=== PATIENT | female | born 1965 | race Caucasian/White ===

== ENCOUNTER → 2017-01-31 | Outpatient (CLI) | payer MEDICARE, MEDICAID ==
[~2017-01-31] MED LIST: ADVA500A INH; ADVAI250I PO; ALBU0.086 INH; ARIP1TAB5 PO; BUPR300T PO; CIPR500T2 PO; COMMODE; CPM; CPMMACHINE; CYAN1000P IM; CYCL1TAB29 PO; DIOV160T3 PO; DOCU100C PO; HYDR-3583 PO; LAMO100T PO; LEVO.075 PO; LYRI200C PO; METHY10 PO; NEXI40CA PO; NEXI40GR PO; NORC10TA2 PO; OXYC-406 PO; OXYC10 PO; OXYC1CAP PO; OXYC30TA PO; SERT100 PO; TOPA100T11 PO; TOPA100T8 PO; VALS1TAB70 PO; VARE1 PO; VENTAER INH; WALKER WHEELS/F1 MIS; WARF-21 PO; WELLTAB39 PO; [UNRECOGNIZED DRUG - OTHER]
[2017-01-31 09:24] LABS: AUTOMATED NEUTROPHIL # 3.9 TH/MM3 (1.8-7.7); BASOPHIL % 0.4 % (0.0-2.0); EOSINOPHIL # 0.4 TH/MM3 (0-0.4); EOSINOPHIL % 6.2 % (0.0-4.0); HEMATOCRIT 39.1 % (35.0-46.0); HEMO FLAGS DIFF FINAL; LYMPHOCYTE # 1.6 TH/MM3 (1.0-4.8); MEAN CELL VOLUME 94.6 FL (80.0-100.0); MEAN CORPUSCULAR HEMOGLOBIN 31.5 PG (27.0-34.0); MEAN CORPUSCULAR HGB CONC 33.3 % (32.0-36.0); MONO % 6.5 % (0.0-8.0); NEUT % 60.9 % (16.0-70.0); PLATELET COUNT 212 TH/MM3 (150-450); RED BLOOD COUNT 4.14 MIL/MM3 (4.00-5.30); RED CELL DISTRIBUTION WIDTH 14.5 % (11.6-17.2); WHITE BLOOD COUNT 6.3 TH/MM3 (4.0-11.0)
[2017-01-31 09:54] LABS: BICARBONATE 28.4 MEQ/L (21.0-32.0); POTASSIUM 4.3 MEQ/L (3.5-5.1)
[2017-01-31 11:07] LABS: BACTERIA, URINE RARE /hpf; BLOOD, URINE NEG (NEG); COMMENT (UR) CULT NOT INDICATED; CULTURE IF INDICATED CULT NOT INDICATED; GLUCOSE,URINE NEG (NEG); KETONE, URINE NEG (NEG); NITRITE,URINE NEG (NEG); PH, URINE 6.5 (5.0-8.5); SQUAMOUS EPITHELIAL CELL URINE <1 /hpf (0-5); URINE COLOR LIGHT-YELLOW (YELLW/STRAW)
--- NOTE | 2017-01-31 13:21 | EKG ---
Date Performed: 01/31/2017 Time Performed: 09:17:04 PTAGE: 51 years EKG: Sinus rhythm NORMAL ECG PREVIOUS TRACING 01/15/16 Compared to prior tracing no significant change DOCTOR: Jeremy Schumacher Interpretating Date/Time 01/31/2017 13:21:11
== END ==
LOC: CPRE 08:10
PROVIDERS: ATTEND Orthopaedic Surgery Orthopaedic Surgery of the Spine
DX: Z01.812 Encounter for preprocedural laboratory examination (principal); Z01.810 Encounter for preprocedural cardiovascular examination; M17.11 Unilateral primary osteoarthritis, right knee
CPT/HCPCS: 36415; 80048; 81001; 85025; 93005

== ENCOUNTER 2017-02-06 08:23 | Inpatient (IN) | payer MEDICARE, MEDICAID ==
[~2017-02-06] VITALS: Ht 162.6 cm; Wt 108.1 kg
[~2017-02-06 08:23] MED LIST changes: -ADVAI250I PO; -ALBU0.086 INH; -CIPR500T2 PO; -COMMODE; -CPM; -CPMMACHINE; -CYAN1000P IM; -DIOV160T3 PO; -DOCU100C PO; -NEXI40CA PO; -NORC10TA2 PO; -OXYC10 PO; -OXYC1CAP PO; -OXYC30TA PO; -SERT100 PO; -TOPA100T8 PO; -WALKER WHEELS/F1 MIS; -WARF-21 PO; -WELLTAB39 PO; -[UNRECOGNIZED DRUG - OTHER]
[2017-02-06] MEDS ORDERED: VANCOMYCIN 1000 MG/NS 250 ML (for <70 kg) IV SCH ×2 (10:30)
[2017-02-06] MEDS ORDERED: CHLORHEXIDINE GLUCONATE 2 % 1 PACK (2 CLOTHS) TOPICAL PRN (10:30)
[2017-02-06] MEDS ORDERED: ceFAZolin 2 GM PREMIX 50 ML IV SCH (10:30)
[2017-02-06] MEDS ORDERED: METOPROLOL TARTRATE 25 MG TAB PO PRN (10:30)
[2017-02-06] MEDS ORDERED: INSULIN HUMAN REGULAR 1,000 UNITS/10 ML VIAL SQ PRN (10:30)
[2017-02-06] MEDS ORDERED: LACTATED RINGER'S 1000 ML IV PRN (10:30)
[2017-02-06] MEDS ORDERED: SODIUM CHLORID 0.9% 500 ML IV PRN (10:30)
[2017-02-06] MEDS ORDERED: CHLORHEXIDINE GLUCONATE 4% SOLN 120 ML BTL TOPICAL SCH (10:30)
[2017-02-06] MEDS ORDERED: POVIDONE IODINE 5% (ANTISEPSIS KIT) 4 APPLICATIONS EACH NARE PRN (10:30)
[2017-02-06] MEDS ORDERED: ONDANSETRON HCL 4 MG/2 ML VIAL IV PUSH ONE (12:00)
[2017-02-06] MEDS ORDERED: MIDAZOLAM HCL 2 MG/2 ML VIAL IV ONE (12:00)
[2017-02-06] MEDS ORDERED: PROPOFOL 200 MG/20 ML AMP IV ONE (12:00)
[2017-02-06] MEDS ORDERED: ROPIVACAINE PERI-ARTICULAR INJECTION. P-ARTICULR SCH ×5 (12:00)
[2017-02-06] MEDS ORDERED: PHENYLEPH/NS 1000 MCG/10 ML SYR IV ONE (12:00)
[2017-02-06] MEDS ORDERED: GENTAMICIN SULFATE 80 MG/2 ML VIAL ONE (12:26)
[2017-02-06] MEDS ORDERED: DEXAMETHASONE SOD PHOS PF 10 MG/ML VIAL ONE (12:27)
[2017-02-06] MEDS ORDERED: BUPIVACAINE HCL PF 0.25% 30 ML VIAL ONE (12:28)
[2017-02-06] MEDS ORDERED: FAMOTIDINE 20 MG/2 ML VIAL ONE (12:38)
[2017-02-06] MEDS ORDERED: ACETAMINOPHEN 1000 MG/100 ML 100 ML IV ONE (12:38)
--- NOTE | 2017-02-06 14:59 | HHI.FF ---
Face to Face Verification Diagnosis: (1) Osteoarthritis of right knee Physical Therapy Gait training, Transfer training, bed to chair Knee: Total knee, Protocol: Right, Full weight bearing Right LE Weight Bearing: WB as tolerated Left LE Weight Bearing: WB as tolerated Nursing RN: 3 days/week x 2 weeks Nursing: Dressing changes (clean incision with alcohol and apply dry sterile dressing ) Additional Instructions Pt/INR q Monday and , call/text results to Phoebe DING [phone] Goal INR 1.5-1.8 I have seen patient Fabiola Fajardo on 02/06/17. My clinical findings support the need for the requested home health care services because: Deconditioned w/ increased weakness I certify that my clinical findings support that this patient is homebound because: Post-op weakness Slade Wynn MD Feb 06, 2017 14:58
[2017-02-06] MEDS ORDERED: PROPOFOL 500 MG/50 ML INJ 50 ML ONE (15:01)
[2017-02-06] MEDS ORDERED: WALKER WHEELS/F1 MIS (15:04)
[2017-02-06] MEDS ORDERED: CPMMACHINE (15:04)
[2017-02-06] MEDS ORDERED: ACETAMINOPHEN/HYDROcodone 325 MG/10 MG TAB PO PRN ×3 (15:15→16:15)
[2017-02-06] MEDS ORDERED: ALUMINUM/MAGNESIUM/SIMETH 30 ML CUP PO PRN (15:15)
[2017-02-06] MEDS ORDERED: SODIUM CHLORIDE 0.9% FLUSH 5 ML FLUSH IVF PRN (15:15)
[2017-02-06] MEDS ORDERED: Post-op Orders (for Pharmacy) MISC XX ONE (15:15)
[2017-02-06] MEDS ORDERED: ONDANSETRON HCL 4 MG/2 ML VIAL IVP PRN (15:15)
--- NOTE | 2017-02-06 15:16 | HHI.PR ---
Immediate Post Op Note Procedure Date: Feb 06, 2017 Pre Op Diagnosis: R Knee OA Post Op Diagnosis: Same Surgeon: Slade Wynn MD Pigment Making Supervisor(s): Phoebe Lagunas PA-C Procedure: R TKR Complications: None Specimen(s) removed: None Estimated blood loss: 25cc Anesthesia: Regional Block, Spinal, Local Drains: Hemovac Tourniquet time (min at mmHg) 56 mins @ 275 mm Hg Patient to: PACU Patient Condition: Good Implant/Devices: SEE IMPLANT LOG (if applicable) Date/Time of Procedure: SEE SURGICAL CARE RECORD Slade Wynn MD Feb 06, 2017 15:16
[2017-02-06] MEDS: LACTATED RINGER'S 1000 ML INJ 1,000 ML IV SCH (15:45)
[2017-02-06] MEDS ORDERED: *morphine SULFATE 8 MG/ML PERIprocedure ONLY ONE (15:50)
[2017-02-06] MEDS ORDERED: *HYDROmorphone PF 1 MG VIAL PERIprocedural Use ONLY ONE (16:06)
--- NOTE | 2017-02-06 16:07 | PD.CONS ---
HPI Service [facility] Consult Requested By Primary Care Physician Darnell Erickson DO Diagnoses: History of Present Illness Mrs. Fajardo is a 51-year-old female. She is at the hospital because she's having a knee surgery on the right. Baseline medical conditions are COPD, hypertension, and hypothyroidism. She has a past history of left knee surgery with good success. She smokes at baseline 1-1.5 packs per day. When seen she is postop and recovering well. No other complaints. Review of Systems Constitutional: DENIES: Diaphoretic episodes, Fatigue, Fever, Chills, Dizziness Eyes: DENIES: Blurred vision, Diplopia, Eye pain Ears, nose, mouth, throat: DENIES: Tinnitus, Hearing loss, Nasal discharge Respiratory: DENIES: Apneas, Cough, Snoring Cardiovascular: DENIES: Chest pain, Palpitations, Syncope Gastrointestinal: DENIES: Abdominal pain, Black stools, Bloody stools Musculoskeletal: COMPLAINS OF: Joint pain, Stiffness, Joint Swelling Integumentary: DENIES: Abnormal pigmentation, Pruritus, Rash, Nail changes Hematologic/lymphatic: DENIES: Bruising, Lymphadenopathy Immunologic/allergic: DENIES: Eczema, Urticaria Neurologic: DENIES: Abnormal gait, Headache, Paresthesias Psychiatric: DENIES: Anxiety, Confusion, Depression Past Family Social History Allergies: Coded Allergies: Sulfa (Sulfonamide Antibiotics) (Unverified Allergy, Severe, TONGUE SWELLING, 02/06/17) doxycycline (Unverified Allergy, Severe, TONGUE SWELLING, 02/06/17) sulfamethoxazole (Unverified Allergy, Severe, TONGUE SWELLING, 02/06/17) trimethoprim (Unverified Allergy, Severe, TONGUE SWELLING, 02/06/17) Past Medical History COPD HTN Hypothyroidism Osteoarthritis ADHD Depression Hx Past Surgical History Left Knee replacement surgery Reported Medications Reported Meds & Active Scripts Active Reported Synthroid (Levothyroxine Sodium) 75 Mcg Tab 75 Mcg PO DAILY Oxycodone ER (Oxycodone HCl) 40 Mg Tab 40 Mg PO Q12HR Hydrocodone-Acetaminophen 10-325 mg Tab 1 Tab PO QID PRN Ventolin Hfa 18 GM Inh (Albuterol Sulfate) 90 Mcg/Act Aer 2 Puff INH Q4-6H PRN Abilify (Aripiprazole) 10 Mg Tab 10 Mg PO DAILY Chantix (Varenicline) 1 Mg Tab 1 Mg PO DIRECTED Lamotrigine 100 Mg Tab 100 Mg PO HS Advair Diskus Inh (Fluticasone-Salmeterol Inh) 500-50 Mcg/Blist Aer 1 Puff INH BID Rinse mouth after use. Valsartan 320 Mg Tab 320 Mg PO DAILY Nexium (Esomeprazole) 40 Mg Pkt 40 Mg PO DAILY Flexeril (Cyclobenzaprine HCl) 10 Mg Tab 10 Mg PO HS Bupropion HCl ER 24 HR (Bupropion HCl) 300 Mg Tab 300 Mg PO DAILY Topamax (Topiramate) 100 Mg Tab 100 Mg PO DAILY Lyrica (Pregabalin) 200 Mg Cap 200 Mg PO BID Ritalin IR (Methylphenidate HCl) 10 Mg Tab 10 Mg PO BIDAC Active Ordered Medications Administered Medications Medications (Trade) Dose Ordered Sig/Jg Route PRN Reason Start Time Stop Time Status Last Admin Dose Admin Lactated Ringer's 1,000 ml @ 30 mls/hr Q24H PRN IV SEE LABEL COMMENTS 02/06/17 10:30 02/09/17 10:29 02/06/17 10:30 Chlorhexidine Gluconate (Chlorhexidine 2% Cloth) 3 pack STONE SANDBLASTER PRN TOPICAL SEE LABEL COMMENTS 02/06/17 10:30 02/09/17 10:29 02/06/17 10:30 Cefazolin Sodium/ Dextrose 50 ml @ 100 mls/hr STONE SANDBLASTER IV 02/06/17 10:30 02/09/17 10:29 02/06/17 13:14 Vancomycin HCl 1000 mg/Sodium Chloride 250 ml @ 250 mls/hr STONE SANDBLASTER IV 02/06/17 10:30 02/09/17 10:29 02/06/17 12:38 Ropivacaine 24.63 ml/Ketorolac Tromethamine 30 mg/Epinephrine HCl 0.5 mg/ Clonidine 80 mcg/ Sodium Chloride 100 ml @ 200 mls/hr ONCE P-ARTICULR 02/06/17 12:00 02/06/17 18:00 02/06/17 14:00 Family History None that the patient can recall Social History Smokes 1 to 1.5 PPD No alcohol abuse reported No illicit drug abuse reported Physical Exam Vital Signs Vital Signs Date Time Temp Pulse Resp B/P (MAP) Pulse Ox O2 Delivery O2 Flow Rate FiO2 02/06/17 14:52 97.5 75 17 126/73 (90) 98 Nasal Cannula 4 02/06/17 10:35 97.7 92 20 106/67 (80) 95 Physical Exam GENERAL: NAD, A&Ox3 HEAD: Normocephalic. NECK: Supple, trachea midline. No lymphadenopathy. EYES: No scleral icterus. No injection or drainage. CARDIOVASCULAR: Regular rate and rhythm without murmurs, gallops, or rubs. RESPIRATORY: Breath sounds equal bilaterally. No accessory muscle use. GASTROINTESTINAL: Abdomen soft, non-tender, nondistended. MUSCULOSKELETAL: No cyanosis, or edema. SKIN: Warm and dry. NEURO: No focal neurological deficitis. Assessment and Plan Problem List: (1) Major depression ICD Code: F32.2 - Major depression Status: Acute (2) COPD (chronic obstructive pulmonary disease) ICD Code: J44.9 - COPD (chronic obstructive pulmonary disease) Status: Chronic (3) Hypothyroidism ICD Code: E03.9 - Hypothyroidism Status: Acute (4) Hypertension, benign ICD Code: I10 - Hypertension, benign Status: Chronic (5) Osteoarthritis of right knee ICD Code: M17.11 - Unilateral primary osteoarthritis, right knee Assessment and Plan Assessment and Plan 51 year old female, status post right knee joint arthroplasty Osteoarthritis S/P Right Total Knee PRN pain treatments Follow CBC COPD Follow clinically PRN albuterol nebulized treatments HTN Follow BP Resume baseline treatments Hypothyroidism Continue baseline treatments Monitor as an outpatient ADHD Depression Hx No change to baseline treatments Nicotine Dependence NicoDerm DVT Prophylaxis Selection deferred to surgeon Problem Qualifiers (1) Osteoarthritis of right knee: Qualified Codes: M17.11 - Unilateral primary osteoarthritis, right knee Robbin Hernandez MD Feb 06, 2017 16:07
--- NOTE | 2017-02-06 16:12 | RADRPT ---
EXAM DATE/TIME: 02/06/2017 15:17 [place] COMPARISON: No previous studies available for comparison. INDICATIONS : Post operative right knee. MEDICAL HISTORY : Gastroesophageal reflux disease. Depression. Anxiety. Asthma. SURGICAL HISTORY : Hysterectomy. ENCOUNTER: Initial ACUITY: 1 day PAIN SCORE: Non-responsive. LOCATION: Right knee. FINDINGS: AP and lateral views of the right knee demonstrate changes consistent with recent total knee arthropl asty with metallic hardware in place in the distal femur and proximal tibia. There is a radiolucent p atellar component. Skin tho are present anteriorly. There is soft tissue gas present, as expected . A surgical drain is in place. CONCLUSION: Expected changes are present following right total knee arthroplasty. Darnell Hadley MD on February 06, 2017 at 16:10 Board Certified Radiologist. This report was verified electronically.
--- NOTE | 2017-02-06 16:14 | MP ---
cc: CAROLYN PANTOJA,ASTRID [place] M.D. DATE OF SURGERY 02/06/2017 PREOPERATIVE DIAGNOSES 1. Right knee severe tricompartmental osteoarthritis. 2. Morbid obesity. POSTOPERATIVE DIAGNOSES 1. Right knee severe tricompartmental osteoarthritis. 2. Morbid obesity. PROCEDURE Right total knee arthroplasty - cemented Biomet vanguard. SURGEON Jerson Wynn MAINTENANCE HELPER UTILITY ENGINEER FADUMO Griffin ESTIMATED BLOOD LOSS 25 mL SPECIMEN None. COMPLICATIONS None. ANESTHESIA Spinal, abductor canal regional, intra-articular local. DRAINS Two. TOURNIQUET TIME 56 minutes at 275 mmHg. CONDITION Stable. PLAN OF ACTIVITY As per orders. PROCEDURE DETAILS The patient was brought in the operating room and had satisfactory anesthesia by the department of Anesthesia. The right lower extremity was prepped and draped in usual sterile manner. The extremity was exsanguinated by elevation, tourniquet inflated to 275 mmHg. My assistant executive housekeeper Phoebe Lagunas, FADUMO was present for the entire surgical case. She was medically necessary for the entire case because of the complexity of the case and to facilitate the performance of the procedure. The LEVEL VIAL SETTER at back table did not have the skill set for this case to manipulate the instruments e.g. the multiple different soft tissue retractors, trial implants, permanent implants including the bone cement. The extremity was exsanguinated by elevation, the tourniquet inflated to 275 mmHg. Anterior exposure to the knee was made. A paramedian capsulotomy was performed. Patient found to have severe tricompartmental osteoarthritis with synovitis of the knee. The remaining portion of medial and lateral meniscus removed. The anterior cruciate ligament was removed. The posterior cruciate ligament was preserved. Prepatellar fat pad was excised. Using the Biomet Vanguard total knee arthroplasty system IM guide was used at the distal femur to accept a 62 mm femoral component. Extramedullary Tibial guide was used for the tibia to accept a 67 mm tibial component. The knee had good balance with flexion/extension. A 12 mm insert was used. The patient found to have excellent balance in knee both flexion/extension. All trial components were removed. The undersurface of the patella was removed to accept a 31-mm three-pronged patellar prosthesis. All trial components removed. Preparation for cementing was made. The knee was irrigated with copious amounts of sterile saline antibiotic solution and the wound itself was dry. The knee was injected with local anesthesia intra-articular injection by myself provided by the department of pharmacy. Two packages of Biomet PALACOS cement was used. First the tibial component was cemented which was 67 mm tibial component and a number 62.5 mm femoral component was cemented with a 12 mm insert. Undersurface of the patella was cemented using a 31-mm three-pronged patellar prosthesis. The bone cement was allowed to harden for 12 minutes. Bone cement was removed. The patient had a 12 x 67 mm tibial component with a lipped component . Tourniquet deflated. All bleeders were then coagulated and the wound itself was dry. The patient found to have excellent range of motion, excellent balance of the knee both flexion/extension. No evidence of instability to the knee joint. The wound was closed over two hemovac drains and hooked up to automatic system. The wound was closed in multiple layers. The capsule and extensor mechanism were closed with multiple interrupted #2 Tycron sutures and subcutaneous layers with 0 Vicryl and 2-0 Vicryl. Skin approximated with skin tho. Sterile dressings were applied. The patient tolerated the procedure well and arrived in recovery room in stable and satisfactory condition. MD LEANN Johnson/NALDO /3:00 PM /3:32 PM TOYIN
[2017-02-06] MEDS ORDERED: NALOXONE HCL 0.4 MG/ML AMP IV PUSH PRN (16:15)
[2017-02-06] MEDS ORDERED: NICOTINE 21 MG/24 HR PATCH T-DERMAL ONE (16:15)
[2017-02-06] MEDS ORDERED: oxyCODONE HCL 40 MG CONTROLLED RELEASE TAB PO ONE (16:15)
[2017-02-06] MEDS ORDERED: RESP: ALBUTEROL 2.5 MG/3 ML NEB (PRN) INH (16:30)
[2017-02-06 20:52] VITALS: BP 142/84; PULSE 98; RESP 18; TEMP 97.5; O2SAT 98
[2017-02-06] MEDS ORDERED: NON-FORMULARY DRUG (Fluticasone-Salmeterol Inh (Advair Diskus Inh) 1 PUFF) INH SCH (21:00)
[2017-02-06] MEDS ORDERED: oxyCODONE HCL 40 MG CONTROLLED RELEASE TAB PO SCH (21:00)
[2017-02-06] MEDS: HYDROmorphone HCL PF 1 MG/ML VIAL IV PUSH PRN (21:15)
[2017-02-06] MEDS: PREGABALIN 100 MG CAP PO SCH (21:15)
[2017-02-06] MEDS: lamoTRIgine 100 MG TAB PO SCH (21:15)
[2017-02-06] MEDS: buPROPion HCL 150 MG SUSTAINED RELEASE TAB PO SCH (21:16)
[2017-02-06] MEDS: CYCLOBENZAPRINE HCL 10 MG TAB PO SCH (21:16)
[2017-02-06] MEDS: SODIUM CHLORIDE 0.9% FLUSH 5 ML FLUSH IVF SCH (21:21)
[2017-02-06] MEDS: BUDESONIDE-FORMOTEROL 160/4.5 MCG INHALER INH SCH (21:26)
[2017-02-06 22:02] VITALS: O2SAT 97
[2017-02-06 23:53] VITALS: BP 103/61; PULSE 83; RESP 18; TEMP 96.3; O2SAT 95
[2017-02-07] VITALS (7 sets, daily range): BP systolic 99–126; BP diastolic 54–97; PULSE 78–106; RESP 18; TEMP 96.4–97.5; O2SAT 95–100
[2017-02-07] MEDS: LACTATED RINGER'S 1000 ML INJ 1,000 ML IV SCH ×3 (02:32→20:13)
[2017-02-07 05:42] LABS: HEMATOCRIT 38.3 % (35.0-46.0); REVIEW FLAG FINAL
[2017-02-07 05:53] LABS: PROTHROMBIN TIME - PATIENT 10.5 SEC (9.8-11.6)
[2017-02-07] MEDS: LEVOTHYROXINE SODIUM 75 MCG TAB PO SCH (05:58)
[2017-02-07] MEDS: HYDROmorphone HCL PF 1 MG/ML VIAL IV PUSH PRN (05:59)
--- NOTE | 2017-02-07 07:11 | PD.ORT.PN ---
Subjective Subjective Remarks POD#1 R TKR C/O post op pain No SOB;No chest pain Explained to patient operative findings Objective Vitals Vital Signs Date Time Temp Pulse Resp B/P (MAP) Pulse Ox O2 Delivery O2 Flow Rate FiO2 02/07/17 03:16 97.1 78 18 108/63 (78) 97 02/06/17 23:53 96.3 83 18 103/61 (75) 95 02/06/17 22:02 97 21 02/06/17 20:52 97.5 98 18 142/84 (103) 98 02/06/17 19:30 97.8 98 18 133/83 (100) 97 Room Air 02/06/17 17:00 Nasal Cannula 2 02/06/17 16:30 76 17 143/84 (103) 98 Nasal Cannula 3 02/06/17 16:15 76 17 140/73 (95) 98 Nasal Cannula 3 02/06/17 16:00 77 15 155/77 (103) 98 Nasal Cannula 3 02/06/17 15:45 59 15 163/87 (112) 98 Nasal Cannula 3 02/06/17 15:30 61 15 160/90 (113) 98 Nasal Cannula 4 02/06/17 15:15 69 14 148/84 (105) 96 Nasal Cannula 4 02/06/17 15:00 70 14 127/74 (91) 98 Nasal Cannula 4 02/06/17 14:52 97.5 75 17 126/73 (90) 98 Nasal Cannula 4 02/06/17 10:35 97.7 92 20 106/67 (80) 95 I/O 02/06/17 02/06/17 02/06/17 02/07/17 02/07/17 02/07/17 07:00 15:00 23:00 07:00 15:00 23:00 Intake Total 1400 ml 763 ml 1021 ml Output Total 450 ml 235 ml 60 ml Balance 950 ml 528 ml 961 ml Intake Oral 360 ml 480 ml IV Total 403 ml 541 ml Other 1400 ml Output Urine Total 425 ml Drainage Total 235 ml 60 ml Estimated Blood Loss 25 ml # Voids 4 2 # Bowel Movements 0 1 Result Diagram: 02/07/17 0526 Other Results Laboratory Tests Test 02/07/17 05:26 Prothromb Time International Ratio 1.0 RATIO Prothrombin Time 10.5 SEC (9.8-11.6) Imaging Last 24 hours Impressions Knee X-Ray 02/06/17 1504 Signed Impressions: Service Date/Time: Monday, February 06, 2017 15:17 - CONCLUSION: Expected changes are present following right total knee arthroplasty. Darnell Hadley MD Objective Remarks N/V intact No calf tenderness;neg dany's sign Assessment & Plan Assessment and Plan Ortho stable PT,rehab Coumadin,TEDS,sequentials for DVT prophylaxsis Slade Wynn MD Feb 07, 2017 07:11
[2017-02-07] MEDS: METHYLPHENIDATE HCL 10 MG TAB PO SCH ×2 (07:35→17:20)
[2017-02-07] MEDS ORDERED: ESOMEPRAZOLE 40 MG PO SCH (09:00)
[2017-02-07] MEDS: SODIUM CHLORIDE 0.9% FLUSH 5 ML FLUSH IVF SCH ×2 (09:00→20:17)
[2017-02-07] MEDS ORDERED: buPROPion HCL 150 MG EXTENDED RELEASE TAB PO SCH (09:00)
[2017-02-07] MEDS: REMOVE OLD PATCH T-DERMAL SCH (09:00)
[2017-02-07] MEDS: PANTOPRAZOLE SOD 40 MG DELAYED RELEASE TAB PO SCH (09:22)
[2017-02-07] MEDS: buPROPion HCL 150 MG SUSTAINED RELEASE TAB PO SCH ×2 (09:22→20:13)
[2017-02-07] MEDS: VALSARTAN 160 MG TAB PO SCH (09:22)
[2017-02-07] MEDS: VARENICLINE 1 MG TAB PO SCH (09:22)
[2017-02-07] MEDS: PREGABALIN 100 MG CAP PO SCH ×2 (09:22→20:13)
[2017-02-07] MEDS: TOPIRAMATE 100 MG TAB PO SCH (09:22)
[2017-02-07] MEDS: ARIPiprazole 10 MG TAB PO SCH (09:23)
[2017-02-07] MEDS: oxyCODONE HCL 40 MG CONTROLLED RELEASE TAB PO SCH ×2 (09:23→20:13)
[2017-02-07] MEDS: NICOTINE 21 MG/24 HR PATCH T-DERMAL SCH (09:23)
[2017-02-07] MEDS ORDERED: INFLUENZA VIRUS VACCINE (QUADRIVALENT) 0.5 ML SYR IM ONE (10:00)
--- NOTE | 2017-02-07 10:28 | HHI.PR ---
Subjective Remarks Pain is not controlled, per patient. She is working with PT. No other complaints. Objective Vital Signs Date Time Temp Pulse Resp B/P (MAP) Pulse Ox O2 Delivery O2 Flow Rate FiO2 02/07/17 09:17 100 02/07/17 07:44 97.5 86 18 126/68 (87) 100 02/07/17 03:16 97.1 78 18 108/63 (78) 97 02/06/17 23:53 96.3 83 18 103/61 (75) 95 02/06/17 22:02 97 21 02/06/17 20:52 97.5 98 18 142/84 (103) 98 02/06/17 19:30 97.8 98 18 133/83 (100) 97 Room Air 02/06/17 17:00 Nasal Cannula 2 02/06/17 16:30 76 17 143/84 (103) 98 Nasal Cannula 3 02/06/17 16:15 76 17 140/73 (95) 98 Nasal Cannula 3 02/06/17 16:00 77 15 155/77 (103) 98 Nasal Cannula 3 02/06/17 15:45 59 15 163/87 (112) 98 Nasal Cannula 3 02/06/17 15:30 61 15 160/90 (113) 98 Nasal Cannula 4 02/06/17 15:15 69 14 148/84 (105) 96 Nasal Cannula 4 02/06/17 15:00 70 14 127/74 (91) 98 Nasal Cannula 4 02/06/17 14:52 97.5 75 17 126/73 (90) 98 Nasal Cannula 4 02/06/17 10:35 97.7 92 20 106/67 (80) 95 I/O 02/06/17 02/06/17 02/06/17 02/07/17 02/07/17 02/07/17 07:00 15:00 23:00 07:00 15:00 23:00 Intake Total 1400 ml 763 ml 1021 ml Output Total 450 ml 235 ml 60 ml Balance 950 ml 528 ml 961 ml Intake Oral 360 ml 480 ml IV Total 403 ml 541 ml Other 1400 ml Output Urine Total 425 ml Drainage Total 235 ml 60 ml Estimated Blood Loss 25 ml # Voids 4 2 # Bowel Movements 0 1 Result Diagram: 02/07/17 0526 Objective Remarks GENERAL: NAD, A&Ox3 HEAD: Normocephalic. NECK: Supple, trachea midline. No lymphadenopathy. EYES: No scleral icterus. No injection or drainage. CARDIOVASCULAR: Regular rate and rhythm without murmurs, gallops, or rubs. RESPIRATORY: Breath sounds equal bilaterally. No accessory muscle use. GASTROINTESTINAL: Abdomen soft, non-tender, nondistended. MUSCULOSKELETAL: No cyanosis. Right lower extremity bandage. SKIN: Warm and dry. NEURO: No focal neurological deficitis. A/P Problem List: (1) COPD (chronic obstructive pulmonary disease) ICD Code: J44.9 - COPD (chronic obstructive pulmonary disease) Status: Chronic (2) Hypertension, benign ICD Code: I10 - Hypertension, benign Status: Chronic (3) Osteoarthritis of right knee ICD Code: M17.11 - Unilateral primary osteoarthritis, right knee (4) Altered mental status ICD Code: R41.82 - Altered mental status, unspecified Status: Acute (5) Hx of total knee replacement ICD Code: Z96.659 - Presence of unspecified artificial knee joint Status: Acute Assessment and Plan Assessment and Plan 51 year old female, status post right knee joint arthroplasty. Narcotics increased today. Osteoarthritis S/P Right Total Knee PRN pain treatments. Continue Narcan as needed Follow CBC COPD Follow clinically PRN albuterol nebulized treatments HTN Follow BP Resume baseline treatments Hypothyroidism Continue baseline treatments Monitor as an outpatient ADHD Depression Hx No change to baseline treatments Nicotine Dependence NicoDerm DVT Prophylaxis Selection deferred to surgeon Problem Qualifiers (1) Osteoarthritis of right knee: Qualified Codes: M17.11 - Unilateral primary osteoarthritis, right knee Robbin Hernandez MD Feb 07, 2017 10:28
[2017-02-07] MEDS: HYDROmorphone HCL PF 2 MG/ML VIAL IV PUSH PRN ×3 (11:45→22:06)
[2017-02-07] MEDS ORDERED: WARFARIN SOD 5 MG TAB PO SCH (16:00)
[2017-02-07] MEDS ORDERED: WARFARIN SOD 7.5 MG TAB PO ONE (16:00)
[2017-02-07] MEDS: CYCLOBENZAPRINE HCL 10 MG TAB PO SCH (20:13)
[2017-02-07] MEDS: lamoTRIgine 100 MG TAB PO SCH (20:13)
[2017-02-07] MEDS: BUDESONIDE-FORMOTEROL 160/4.5 MCG INHALER INH SCH (20:35)
[2017-02-08 04:47] VITALS: BP 99/71; PULSE 96; RESP 18; TEMP 98.2; O2SAT 96
[2017-02-08] MEDS: METHYLPHENIDATE HCL 10 MG TAB PO SCH ×2 (05:19→14:58)
[2017-02-08] MEDS: LEVOTHYROXINE SODIUM 75 MCG TAB PO SCH (05:19)
--- NOTE | 2017-02-08 07:46 | PD.ORT.PN ---
Subjective Subjective Remarks pt complains of post op R knee pain otherwise no complaints wants to be discharged home today Objective Vitals Vital Signs Date Time Temp Pulse Resp B/P (MAP) Pulse Ox O2 Delivery O2 Flow Rate FiO2 02/08/17 07:42 Room Air 02/08/17 04:47 98.2 96 18 99/71 (80) 96 02/07/17 23:34 97.4 95 18 117/97 (104) 97 02/07/17 19:35 21 02/07/17 19:07 96.4 91 18 123/87 (99) 98 02/07/17 15:39 96.5 96 18 99/54 (69) 95 02/07/17 11:34 96.4 106 18 109/62 (78) 98 02/07/17 09:17 100 I/O 02/07/17 02/07/17 02/07/17 02/08/17 02/08/17 02/08/17 07:00 15:00 23:00 07:00 15:00 23:00 Intake Total 1021 ml 800 ml 360 ml 480 ml Output Total 60 ml Balance 961 ml 800 ml 360 ml 480 ml Intake Oral 480 ml 800 ml 360 ml 480 ml IV Total 541 ml Drainage Total 60 ml # Voids 2 3 3 3 # Bowel Movements 1 1 3 0 Result Diagram: 02/07/17 0526 Imaging Last 24 hours Impressions Knee X-Ray 02/06/17 1504 Signed Impressions: Service Date/Time: Monday, February 06, 2017 15:17 - CONCLUSION: Expected changes are present following right total knee arthroplasty. Darnell Hadley MD Objective Remarks R knee in CPM machine dressing dry and intact N/V intact No calf tenderness;neg dany's sign Assessment & Plan Assessment and Plan POD # 2 s/p R TKA INR pending this am, 7.5mg of coumadin put on rx Ortho stable PT,rehab Coumadin,TEDS,sequentials for DVT prophylaxsis discharge home today with [facility], orthopedically stable pain management has already supplied pain meds, not giving rx when discharged Phoebe Lagunas Feb 08, 2017 07:46
[2017-02-08 07:58] VITALS: BP 101/60; PULSE 65; RESP 19; TEMP 97; O2SAT 96
[2017-02-08] MEDS: NICOTINE 21 MG/24 HR PATCH T-DERMAL SCH (08:07)
[2017-02-08] MEDS: REMOVE OLD PATCH T-DERMAL SCH (08:07)
[2017-02-08] MEDS: VARENICLINE 1 MG TAB PO SCH (08:08)
[2017-02-08] MEDS: PANTOPRAZOLE SOD 40 MG DELAYED RELEASE TAB PO SCH (08:08)
[2017-02-08] MEDS: buPROPion HCL 150 MG SUSTAINED RELEASE TAB PO SCH (08:08)
[2017-02-08] MEDS: oxyCODONE HCL 40 MG CONTROLLED RELEASE TAB PO SCH (08:08)
[2017-02-08] MEDS: PREGABALIN 100 MG CAP PO SCH (08:08)
[2017-02-08] MEDS: ARIPiprazole 10 MG TAB PO SCH (08:08)
[2017-02-08] MEDS: SODIUM CHLORIDE 0.9% FLUSH 5 ML FLUSH IVF SCH (08:09)
[2017-02-08] MEDS: VALSARTAN 160 MG TAB PO SCH (08:09)
[2017-02-08] MEDS: TOPIRAMATE 100 MG TAB PO SCH (08:09)
[2017-02-08 08:28] LABS: PROTHROMBIN TIME - PATIENT 11.1 SEC (9.8-11.6)
[2017-02-08 09:43] VITALS: PULSE 95
[2017-02-08] MEDS ORDERED: WARF-21 PO (09:50)
[2017-02-08] MEDS ORDERED: OXYC1CAP PO (10:46)
[2017-02-08] MEDS ORDERED: DOCU100C PO (10:46)
--- NOTE | 2017-02-08 10:51 | HHI.PR ---
Subjective Remarks Anus better control with addition of 5 mg of oxycodone on top of her baseline pain treatments. She did not have pain control and baseline treatments. No complaints from the patient. No complaints of constipation. Objective Vital Signs Date Time Temp Pulse Resp B/P (MAP) Pulse Ox O2 Delivery O2 Flow Rate FiO2 02/08/17 09:43 95 02/08/17 07:58 97.0 65 19 101/60 (74) 96 02/08/17 07:42 Room Air 02/08/17 04:47 98.2 96 18 99/71 (80) 96 02/07/17 23:34 97.4 95 18 117/97 (104) 97 02/07/17 19:35 21 02/07/17 19:07 96.4 91 18 123/87 (99) 98 02/07/17 15:39 96.5 96 18 99/54 (69) 95 02/07/17 11:34 96.4 106 18 109/62 (78) 98 I/O 02/07/17 02/07/17 02/07/17 02/08/17 02/08/17 02/08/17 06:59 14:59 22:59 06:59 14:59 22:59 Intake Total 1021 ml 800 ml 360 ml 480 ml Output Total 60 ml Balance 961 ml 800 ml 360 ml 480 ml Intake Oral 480 ml 800 ml 360 ml 480 ml IV Total 541 ml Drainage Total 60 ml # Voids 2 3 3 3 # Bowel Movements 1 1 3 0 Result Diagram: 02/07/17 0526 Objective Remarks GENERAL: NAD, A&Ox3 HEAD: Normocephalic. NECK: Supple, trachea midline. No lymphadenopathy. EYES: No scleral icterus. No injection or drainage. CARDIOVASCULAR: Regular rate and rhythm without murmurs, gallops, or rubs. RESPIRATORY: Breath sounds equal bilaterally. No accessory muscle use. GASTROINTESTINAL: Abdomen soft, non-tender, nondistended. MUSCULOSKELETAL: No cyanosis. Right lower extremity bandage. SKIN: Warm and dry. NEURO: No focal neurological deficitis. A/P Problem List: (1) COPD (chronic obstructive pulmonary disease) ICD Code: J44.9 - COPD (chronic obstructive pulmonary disease) Status: Chronic (2) Hypertension, benign ICD Code: I10 - Hypertension, benign Status: Chronic (3) Osteoarthritis of right knee ICD Code: M17.11 - Unilateral primary osteoarthritis, right knee (4) Altered mental status ICD Code: R41.82 - Altered mental status, unspecified Status: Acute (5) Hx of total knee replacement ICD Code: Z96.659 - Presence of unspecified artificial knee joint Status: Acute Assessment and Plan Assessment and Plan 51 year old female, status post right knee joint arthroplasty. Ortho-Est clear this patient for discharge today. Medically stable for discharge to home today with home PT. I have added 5 mg oxycodone to take in addition to her 10 mg short acting baseline treatments at home, to use for up to 2 weeks. This is closer to what she has been on here for pain control, pain controlled here. Osteoarthritis S/P Right Total Knee PRN pain treatments. Continue Narcan as needed Follow CBC Home PT with [facility] COPD Follow clinically PRN albuterol nebulized treatments HTN Follow BP Resume baseline treatments Hypothyroidism Continue baseline treatments Monitor as an outpatient ADHD Depression Hx No change to baseline treatments Nicotine Dependence NicoDerm DVT Prophylaxis Coumadin Discharge planning Medically clear for discharge to home today. Problem Qualifiers (1) Osteoarthritis of right knee: Qualified Codes: M17.11 - Unilateral primary osteoarthritis, right knee Robbin Hernandez MD Feb 08, 2017 10:51
[2017-02-08 11:41] VITALS: BP 92/52; PULSE 92; RESP 19; TEMP 97.8; O2SAT 97
[2017-02-08 15:33] VITALS: BP 138/74; PULSE 93; RESP 19; TEMP 97.6; O2SAT 97
[2017-02-08] MEDS ORDERED: WARFARIN SOD 5 MG TAB PO SCH (16:00)
== END 2017-02-08 17:20 | disposition home health service (06) | DRG 470 ==
LOC: HSDI 09:49 → N06A 20:02
PROVIDERS: ADMIT Orthopaedic Surgery Orthopaedic Surgery of the Spine; ATTEND Orthopaedic Surgery Orthopaedic Surgery of the Spine
PROC: 3E0T3BZ Introduction of Anesthetic Agent into Peripheral Nerves and Plexi, Percutaneous Approach (ICD-10-PCS; 2017-02-06)
PROC: 0SRC0J9 Replacement of Right Knee Joint with Synthetic Substitute, Cemented, Open Approach (ICD-10-PCS; principal; 2017-02-06 12:39)
DX: M17.11 Unilateral primary osteoarthritis, right knee (principal); Z68.41 Body mass index [BMI] 40.0-44.9, adult; I10 Essential (primary) hypertension; E66.01 Morbid (severe) obesity due to excess calories; J44.9 Chronic obstructive pulmonary disease, unspecified; E03.9 Hypothyroidism, unspecified; F17.210 Nicotine dependence, cigarettes, uncomplicated; F90.9 Attention-deficit hyperactivity disorder, unspecified type; F32.9 Major depressive disorder, single episode, unspecified; Z23 Encounter for immunization; Z96.652 Presence of left artificial knee joint
CPT/HCPCS: 73560; 85014; 85018; 85610; 86850; 86900; 86901; 86920; 90471; 90686; C1776; G0008; J0131; J0690; J0735; J1100; J1170; J1580; J1885; J2250; J2270; J2370; J2405; J2795; J3370; J7050; J7120; L1830; Q2038